=== PATIENT | female | born 1950 | race Caucasian/White ===

== ENCOUNTER 2019-09-10 12:11 | Inpatient (IN) ==
[2019-09-10] MEDS ORDERED: TUSSIONEX PENNKINETIC SUSP PO PRN (12:21)
[2019-09-10] MEDS ORDERED: LEVAQUIN PREMIX IV 500 MG 500 MG/100 ML BAG IV SCH (13:00)
[2019-09-10 13:02] LABS: BASOPHILS % (AUTO) 0.1 % (0.2-1.0); HEMATOCRIT 33.1 % (36.0-47.0); HEMOGLOBIN 11.1 g/dL (12.0-16.0); LYMPHOCYTES # (AUTO) 2.8 X10^3/uL (1.3-2.9); LYMPHOCYTES % (AUTO) 20.1 % (21.0-51.0); MEAN CORPUSCULAR HEMOGLOBIN 30.7 pg (27.0-34.0); MEAN CORPUSCULAR HGB CONC 33.7 g/dL (33.0-35.0); MEAN CORPUSCULAR VOLUME 91.1 fL (80.0-100.0); MONOCYTES # (AUTO) 1.6 x10^3/uL (0.3-0.8); MONOCYTES % (AUTO) 11.7 % (0.0-13.0); NEUTROPHILS # (AUTO) 9.4 x10^3/uL (2.2-4.8); NEUTROPHILS % (AUTO) 68.1 % (42.0-75.0); PLATELET COUNT 394 X10^3/uL (150.0-450.0); RED BLOOD COUNT 3.63 X10^6/uL (3.5-5.4); RED CELL DISTRIBUTION WIDTH 14.3 % (11.6-16.5); WHITE BLOOD COUNT 13.8 X10^3/uL (3.6-10.0)
[2019-09-10 13:22] LABS: ALANINE AMINOTRANSFERASE 29 Units/L (12-78); ALKALINE PHOSPHATASE 136 Units/L (46-116); ASPARTATE AMINO TRANSFERASE 25 Units/L (15-37); BLOOD UREA NITROGEN 35 mg/dL (7-18); CALCIUM 8.4 mg/dL (8.5-10.1); CARBON DIOXIDE 24.1 mmol/L (21-32); CHLORIDE 103 mmol/L (98-107); COR CA(FOR HYPOALB) 9.2 mg/dL (8.5-10.1); CREATININE 1.87 mg/dL (0.55-1.02); SODIUM 136 mmol/L (136-145); TOTAL PROTEIN 8.8 g/dL (6.4-8.2); eGFR NON BLACK RACES 28 (>60)
[2019-09-10 13:59] LABS: BILIRUBIN,URINE NEGATIVE (NEGATIVE); BLOOD/HEMOGLOBIN,URINE 5+ (NEGATIVE); GLUCOSE, URINE NEGATIVE (NEGATIVE); KETONES,URINE NEGATIVE (NEGATIVE); LEUKOCYTE ESTERASE ,URINE 3+ (NEGATIVE); NITRITES,URINE NEGATIVE (NEGATIVE); PROTEIN,URINE 2+ (NEGATIVE); UROBILINOGEN,URINE NORMAL (NORMAL)
[2019-09-10 14:01] VITALS: BMI 39.4
[2019-09-10 14:05] LABS: APPEARANCE,URINE HAZY (CLEAR); BACTERIA,URINE TRACE /HPF (NEGATIVE); COLOR,URINE AMBER (YELLOW); RBC,URINE 20-30 /HPF (0-3); SQUAMOUS EPITHELIAL CELL,UR RARE /HPF (NEGATIVE); YEAST,URINE RARE /HPF (NEGATIVE)
--- NOTE | 2019-09-10 14:07 | RAD ---
HISTORY: Cough, fever, pneumonia Study: Two-view chest Comparison: No priors Findings: Trachea is midline. Heart size is upper normal. There are increased interstitial markings bilaterally which may represent bilateral bronchitis or interstitial pneumonitis. No dense consolidation, CHF pleural fluid or pneumothorax is seen. There is a mild thoracolumbar scoliosis. There is multilevel thoracic spondylosis. IMPRESSION: Bilateral bronchitis versus interstitial pneumonitis. No dense consolidation or CHF is seen. Reported By:
[2019-09-10] MEDS ORDERED: NS 1/2 1000 ML IV 1,000 ML IV ONE (15:22)
[2019-09-10] MEDS: NS 1/2 1000 ML IV 1,000 ML IV SCH (15:30)
[2019-09-10] MEDS: ROBITUSSIN DM PO SCH ×3 (15:52→20:21)
[2019-09-10] MEDS: SOLU-Medrol 40 MG VIAL IVP SCH ×2 (15:52→22:00)
[2019-09-10] MEDS: LEVAQUIN PREMIX IV 750 MG 750 MG/150 ML BAG IV SCH (15:52)
[2019-09-10] MEDS: VSL#3 PO SCH (16:11)
[2019-09-10] MEDS: TAMIFLU PO SCH ×2 (16:11→20:20)
[2019-09-10] MEDS: DUONEB 0.5 MG/3 MG NEB SCH ×2 (16:50→21:30)
[2019-09-10] MEDS ORDERED: ZOFRAN INJ 4 MG VIAL IVP PRN (17:57)
[2019-09-10] MEDS: PULMICORT NEB TX 0.5 MG NEB SCH (21:30)
[2019-09-11] MEDS: NS 1/2 1000 ML IV 1,000 ML IV SCH ×4 (03:53→18:55)
[2019-09-11] MEDS ORDERED: NS 1/2 1000 ML IV 1,000 ML IV ONE ×2 (05:22→18:43)
[2019-09-11 05:35] LABS: BASOPHILS % (AUTO) 0.1 % (0.2-1.0); HEMATOCRIT 29.4 % (36.0-47.0); HEMOGLOBIN 9.8 g/dL (12.0-16.0); MEAN CORPUSCULAR HEMOGLOBIN 30.8 pg (27.0-34.0); MEAN CORPUSCULAR HGB CONC 33.4 g/dL (33.0-35.0); MEAN CORPUSCULAR VOLUME 92.1 fL (80.0-100.0); MONOCYTES # (AUTO) 0.5 x10^3/uL (0.3-0.8); MONOCYTES % (AUTO) 4.8 % (0.0-13.0); NEUTROPHILS # (AUTO) 8.3 x10^3/uL (2.2-4.8); NEUTROPHILS % (AUTO) 85.1 % (42.0-75.0); PLATELET COUNT 293 X10^3/uL (150.0-450.0); RED BLOOD COUNT 3.19 X10^6/uL (3.5-5.4); RED CELL DISTRIBUTION WIDTH 14.3 % (11.6-16.5); WHITE BLOOD COUNT 9.8 X10^3/uL (3.6-10.0)
[2019-09-11] MEDS: SOLU-Medrol 40 MG VIAL IVP SCH ×3 (05:38→21:03)
[2019-09-11 05:50] LABS: ALBUMIN 2.4 g/dL (3.4-5.0); CALCIUM 7.9 mg/dL (8.5-10.1); CARBON DIOXIDE 22.2 mmol/L (21-32); COR CA(FOR HYPOALB) 9.2 mg/dL (8.5-10.1); CREATININE 1.83 mg/dL (0.55-1.02); TOTAL PROTEIN 7.6 g/dL (6.4-8.2)
--- NOTE | 2019-09-11 06:19 | RAD ---
HISTORY: Shortness of breath Study: Chest AP portable Comparison: 09/10/2019 Findings: The heart is within normal limits in size. The garrett are normal. The lungs are free of acute alveolar infiltrates. There is some interstitial infiltrate again identified as is some peribronchial thickening suggestive of pneumonitis/bronchitis. No significant pleural effusions are identified. The bony thorax is unremarkable. IMPRESSION: Bilateral perihilar interstitial lung changes with some peribronchial thickening consistent with pneumonitis/bronchitis, unchanged Reported By:
[2019-09-11] MEDS: ROBITUSSIN DM PO SCH ×4 (08:35→21:03)
[2019-09-11] MEDS: TAMIFLU PO SCH ×2 (08:35→21:03)
[2019-09-11] MEDS: VSL#3 PO SCH (08:35)
[2019-09-11] MEDS: PULMICORT NEB TX 0.5 MG NEB SCH ×2 (09:25→20:50)
[2019-09-11] MEDS: DUONEB 0.5 MG/3 MG NEB SCH ×4 (09:25→20:50)
--- NOTE | 2019-09-11 10:29 | DR.UPDATE ---
H&P Update History and Physical Update: History and Physical reviewed and patient examined. Changes noted: Yes with the following: WAS SEEN IN THE OFFICE TODAY FOR PERSISTENT COUGH AND SHORTNESS OF BREATH. SHE HAS BEEN TAKING BACTRIM DS 1 TABLET TWICE A DAY FOR A URINARY TRACT INFECTION. SHE HAS ALSO BEEN TAKING A MEDROL DOSEPACK FOR 3 DAYS. SHE RECEIVED A ROCEPHIN AND SOLU-MEDROL INJECTION IN THE OFFICE 4 DAYS AGO, BUT DENIES IMPROVEMENT IN SYMPTOMS. ON EXAMINATION, SHE IS NOTED WITH SCATTERED WHEEZING. WE WILL OBTAIN LABS, CHEST XRAY, INFLUENZA SWAB, AND CULTURES. WE WILL START THE PNEUMONIA PROTOCOL WITH IV LEVAQUIN, SOLU- MEDROL, RESPIRATORY TREATMENTS, AND SUPPLEMENTAL OXYGEN. OTHERWISE, WE WILL FOLLOW-UP WITH AM LABS AND CONTINUE TO MONITOR. Prescription drug monitoring program results: PDMP was not reviewed H&P Reviewed: Yes Patient was examined?: Yes
--- NOTE | 2019-09-11 20:24 | PCM.PROG ---
Progress Note - Progress Note for Day of Date of Exam: 09/11/19 - Subjective Subjective: WAS ADMITTED FOR TREATMENT OF PNEUMONIA. TODAY, SHE IS ALERT AND ORIENTED, LYING IN BED ON MORNING ROUNDS. SHE CONTINUES WITH COMPLAINTS OF SHORTNESS OF BREATH AND A PRODUCTIVE COUGH. ON EXAMINATION, HEART IS REGULAR IN RATE AND RHYTHM. BILATERAL LUNGS ARE NOTED WITH SCATTERED WHEEZI NG. ABDOMEN IS ROUND, SOFT, AND NON-TENDER WITH NORMAL BOWEL SOUNDS NOTED IN ALL QUADRANTS. HER VITALS THIS MORNING ARE: 98.4-66-18-98%-143/65. LABS WERE OBTAINED. ABNORMAL LAB VALUES INCLUDE THE FOLLOWING: RBC 3.19, HGB 9.8, HCT 29.4, SODIUM 135, POTASSIUM 5.5, BUN 31, CREATININE 1.83, GLUCOSE 154, CALCIUM 7.9, ALBUMIN 2.4. URINALYSIS WAS OBTAINED ON ADMISSION AND REVEALED: WBC 10-20, RBC 20-30, LEUKOCYTES 3+, BACTERIA TRACE. BLOOD, SPUTUM, AND URINE CULTURE PENDING. A CHEST XRAY WAS OBTAINED THIS MORNING AND REVEALED: BILATERAL PERIHILAR INTERSTITIAL LUNG CHANGES WITH SOME PERIBRONCHIAL THICKENING CONSISTENT WITH PNEUMONITIS/BRONCHITIS, UNCHANGED. SHE IS CURRENTLY RECEIVING LEVAQUIN 750MG IV Q48H, SOLU-MEDROL 40MG IV Q8H, TAMIFLU 75MG PO BID, RESPIRATORY TX, AND 1/2NS AT 75ML/HR. WE WILL CONTINUE WITH CURRENT PLAN OF CARE TODAY AND OBTAIN AN ECHO. OTHERWISE, WE WILL FOLLOW UP WITH AM LABS AND CONTINUE TO MONITOR. - Past Medical Family Social History Past Med/Fam/Surg Hx: No changes since H&P Allergies: Allergies indomethacin [From Indocin] Allergy (Verified 09/10/19 15:06) - Review of Systems ROS: No change since H&P - Vital Signs and I&O's Vital Signs: Temperature 98.6 F Pulse Rate [Left Brachial] 76 Pulse Rate 75 Respiratory Rate 16 Blood Pressure [Right Arm] 169/70 Blood Pressure [Left Arm] 155/59 O2 Sat by Pulse Oximetry 97 Intake and Output: Intake & Output 09/09/19 09/10/19 09/11/19 09/12/19 11:59 11:59 11:59 11:59 Intake Total 735 / 735 690 / 690 Balance 735 / 735 690 / 690 - Physical Exam Oriented: Normal Eyes: Normal Ear: Normal Nose: Normal Throat: Normal Respiratory: Generalized, Wheezes Cardiovascular: Normal : Normal Auscultation: Bowel Sounds: Normal Palpation: Normal Tenderness: Normal Skin: Normal Musculoskeletal: Normal Psychiatric: Normal Mood Description: Calm Affect: Normal Speech Pattern: Clear, Appropriate - Laboratory and Diagnostics Result Diagrams: 09/11/19 05:10 09/11/19 05:10 Labs: 09/10/19 16:44 Sputum - Expectorated Sputum Sputum Culture - Preliminary 09/10/19 16:44 Sputum - Expectorated Sputum - Final 09/10/19 13:34 Urine,Clean Catch Urine Culture - Final Laboratory WBC 9.8 X10^3/uL (3.6-10.0) 09/11/19 05:10 RBC 3.19 X10^6/uL (3.5-5.4) L 09/11/19 05:10 Hgb 9.8 g/dL (12.0-16.0) L 09/11/19 05:10 Hct 29.4 % (36.0-47.0) L 09/11/19 05:10 MCV 92.1 fL (80.0-100.0) 09/11/19 05:10 MCH 30.8 pg (27.0-34.0) 09/11/19 05:10 MCHC 33.4 g/dL (33.0-35.0) 09/11/19 05:10 RDW 14.3 % (11.6-16.5) 09/11/19 05:10 Plt Count 293 X10^3/uL (150.0-450.0) 09/11/19 05:10 MPV 7.0 fL (7.4-11.0) L 09/11/19 05:10 Neut % (Auto) 85.1 % (42.0-75.0) H 09/11/19 05:10 Lymph % (Auto) 10.0 % (21.0-51.0) L 09/11/19 05:10 [place] % (Auto) 4.8 % (0.0-13.0) 09/11/19 05:10 Eos % (Auto) 0.0 % (0.9-2.9) L 09/11/19 05:10 Baso % (Auto) 0.1 % (0.2-1.0) L 09/11/19 05:10 Neut # (Auto) 8.3 x10^3/uL (2.2-4.8) H 09/11/19 05:10 Lymph # (Auto) 1.0 X10^3/uL (1.3-2.9) L 09/11/19 05:10 [place] # (Auto) 0.5 x10^3/uL (0.3-0.8) 09/11/19 05:10 Eos # (Auto) 0.0 x10^3/uL (0.0-0.2) 09/11/19 05:10 Baso # (Auto) 0.0 X10^3/uL (0.0-0.1) 09/11/19 05:10 Absolute Nucleated RBC 0.0 /100WBC 09/11/19 05:10 Sodium 135 mmol/L (136-145) L 09/11/19 05:10 Corrected Sodium 136 mmol/L (136-145) 09/11/19 05:10 Potassium 5.5 mmol/L (3.5-5.1) H 09/11/19 05:10 Chloride 103 mmol/L (98-107) 09/11/19 05:10 Carbon Dioxide 22.2 mmol/L (21-32) 09/11/19 05:10 BUN 31 mg/dL (7-18) H 09/11/19 05:10 Creatinine 1.83 mg/dL (0.55-1.02) H 09/11/19 05:10 Est GFR (MDRD) Af Amer 35 (>60) L 09/11/19 05:10 Est GFR (MDRD) Non-Af 29 (>60) L 09/11/19 05:10 Glucose 154 mg/dL (65-99) H 09/11/19 05:10 Calcium 7.9 mg/dL (8.5-10.1) L 09/11/19 05:10 Corrected Calcium 9.2 mg/dL (8.5-10.1) 09/11/19 05:10 Total Bilirubin 0.30 mg/dL (0.2-1.0) 09/11/19 05:10 AST 19 Units/L (15-37) 09/11/19 05:10 ALT 29 Units/L (12-78) 09/11/19 05:10 Alkaline Phosphatase 115 Units/L (46-116) 09/11/19 05:10 Total Protein 7.6 g/dL (6.4-8.2) 09/11/19 05:10 Albumin 2.4 g/dL (3.4-5.0) L 09/11/19 05:10 Globulin 5.2 g/dL (2.5-4.5) H 09/11/19 05:10 Albumin/Globulin Ratio 0.5 Ratio (1.1-2.1) L 09/11/19 05:10 Specimen Type Clean catch urine 09/10/19 13:34 Urine Color Meghna (YELLOW) 09/10/19 13:34 Urine Appearance Hazy (CLEAR) 09/10/19 13:34 Urine pH 6.0 (5.0 - 8.0) 09/10/19 13:34 Ur Specific [place] 1.015 (1.000-1.030) 09/10/19 13:34 Urine Protein 2+ (NEGATIVE) 09/10/19 13:34 Urine Glucose (UA) Negative (NEGATIVE) 09/10/19 13:34 Urine Ketones Negative (NEGATIVE) 09/10/19 13:34 Urine Occult Blood 5+ (NEGATIVE) 09/10/19 13:34 Urine Nitrite Negative (NEGATIVE) 09/10/19 13:34 Urine Bilirubin Negative (NEGATIVE) 09/10/19 13:34 Urine Urobilinogen Normal (NORMAL) 09/10/19 13:34 Ur Leukocyte Esterase 3+ (NEGATIVE) 09/10/19 13:34 Urine RBC 20-30 /HPF (0-3) A 09/10/19 13:34 Urine WBC 10-20 /HPF (0-5) A 09/10/19 13:34 Ur Squamous Epith Cells Rare /HPF (NEGATIVE) 09/10/19 13:34 Urine Bacteria Trace /HPF (NEGATIVE) 09/10/19 13:34 Urine Yeast Rare /HPF (NEGATIVE) 09/10/19 13:34 Ur Culture Indicated? Yes/culture set up 09/10/19 13:34 Influenza Type A (PCR) Negative (NEGATIVE) 09/10/19 14:55 Influenza Type B (PCR) Negative (NEGATIVE) 09/10/19 14:55 - Plan (1) Pneumonia Status: Acute Qualifiers: Pneumonia type: due to unspecified organism Laterality: bilateral Lung location: unspecified part of lung Qualified Code(s): J18.9 - Pneumonia, unspecified organism Plan: IV FLUIDS, LEVAQUIN IV DAILY, RESPIRATORY TX, SOLU-MEDROL TID, SUPPLEMENTAL OXYGEN, CONTINUE TO MONITOR.
[2019-09-12 05:28] LABS: BASOPHILS % (AUTO) 0.1 % (0.2-1.0); HEMATOCRIT 29.5 % (36.0-47.0); HEMOGLOBIN 9.9 g/dL (12.0-16.0); LYMPHOCYTES # (AUTO) 1.1 X10^3/uL (1.3-2.9); LYMPHOCYTES % (AUTO) 7.7 % (21.0-51.0); MEAN CORPUSCULAR HGB CONC 33.5 g/dL (33.0-35.0); MEAN CORPUSCULAR VOLUME 92.4 fL (80.0-100.0); MEAN PLATELET VOLUME 7.2 fL (7.4-11.0); MONOCYTES # (AUTO) 0.7 x10^3/uL (0.3-0.8); MONOCYTES % (AUTO) 5.1 % (0.0-13.0); NEUTROPHILS # (AUTO) 12.1 x10^3/uL (2.2-4.8); NEUTROPHILS % (AUTO) 87.1 % (42.0-75.0); PLATELET COUNT 312 X10^3/uL (150.0-450.0); RED BLOOD COUNT 3.19 X10^6/uL (3.5-5.4); RED CELL DISTRIBUTION WIDTH 14.1 % (11.6-16.5); WHITE BLOOD COUNT 13.9 X10^3/uL (3.6-10.0)
[2019-09-12 05:40] LABS: ALBUMIN 2.3 g/dL (3.4-5.0); CARBON DIOXIDE 23.3 mmol/L (21-32); COR CA(FOR HYPOALB) 9.4 mg/dL (8.5-10.1); CREATININE 1.83 mg/dL (0.55-1.02); TOTAL PROTEIN 7.3 g/dL (6.4-8.2)
[2019-09-12] MEDS ORDERED: NS 1/2 1000 ML IV 1,000 ML IV ONE ×2 (05:54→19:47)
[2019-09-12] MEDS: SOLU-Medrol 40 MG VIAL IVP SCH ×3 (06:13→21:37)
[2019-09-12] MEDS: NS 1/2 1000 ML IV 1,000 ML IV SCH ×3 (06:13→21:37)
--- NOTE | 2019-09-12 06:55 | RAD ---
HISTORY: 69-year-old female with cough and fever. Study: Frontal view of the chest. Comparison: Chest radiograph 09/11/2019 Findings: The trachea is midline. Patient is rotated to the left. The cardiac silhouette is stably enlarged with unchanged prominence interstitium and perihilar lung markings. The lungs are clear without focal consolidation, effusion or pneumothorax. Soft tissues are unremarkable. Osseous structures are unremarkable. IMPRESSION: 1. No interval change. Reported By:
[2019-09-12] MEDS: VSL#3 PO SCH (08:53)
[2019-09-12] MEDS: ROBITUSSIN DM PO SCH ×4 (08:53→20:28)
[2019-09-12] MEDS: PULMICORT NEB TX 0.5 MG NEB SCH ×2 (08:59→20:51)
[2019-09-12] MEDS: DUONEB 0.5 MG/3 MG NEB SCH ×4 (08:59→20:51)
[2019-09-12] MEDS: LEVAQUIN PREMIX IV 750 MG 750 MG/150 ML BAG IV SCH (15:41)
--- NOTE | 2019-09-12 19:04 | PCM.PROG ---
Progress Note - Progress Note for Day of Date of Exam: 09/12/19 - Subjective Subjective: WAS ADMITTED FOR TREATMENT OF PNEUMONIA. TODAY, SHE IS ALERT AND ORIENTED, LYING IN BED ON MORNING ROUNDS. SHE CONTINUES WITH COMPLAINTS OF SHORTNESS OF BREATH AND A PRODUCTIVE COUGH. ON EXAMINATION, HEART IS REGULAR IN RATE AND RHYTHM. BILATERAL LUNGS ARE NOTED WITH SCATTERED WHEEZI NG. ABDOMEN IS ROUND, SOFT, AND NON-TENDER WITH NORMAL BOWEL SOUNDS NOTED IN ALL QUADRANTS. HER VITALS THIS MORNING ARE: 97.9-72-20-98%-152/66. LABS WERE OBTAINED. ABNORMAL LAB VALUES INCLUDE THE FOLLOWING: WBC 13.9, RBC 3.19, HGB 9.9, HCT 29.5, SODIUM 134, POTASSIUM 6.0, BUN 41, CREATININE 1.83, GLUCOSE 159, CALCIUM 8.0, ALBUMIN 2.3, GLOBULIN 5.0. BLOOD, SPUTUM, AND URINE CULTURE PENDING. A CHEST XRAY WAS OBTAINED THIS MORNING AND REVEALED: The trachea is midline. Patient is rotated to the left. The cardiac silhouette is stably enlarged with unchanged prominence interstitium and perihilar lung markings. The lungs are clear without focal consolidation, effusion or pneumothorax. Soft tissues are unremarkable. Osseous structures are unremarkable. AN ECHO WAS OBTAINED AND REVEALED AN EJECTION FRACTION OF 71%. SHE IS CURRENTLY RECEIVING LEVAQUIN 750MG IV Q48H, SOLU-MEDROL 40MG IV Q8H, TAMIFLU 75MG PO BID, RESPIRATORY TX, AND 1/2NS AT 75ML/HR. WE WILL CONTINUE WITH CURRENT PLAN OF CARE TODAY AND INCREASE HER IV FLUIDS TO 125 ML/HR. OTHERWISE, WE WILL FOLLOW UP WITH AM LABS AND CONTINUE TO MONITOR. - Past Medical Family Social History Past Med/Fam/Surg Hx: No changes since H&P Allergies: Allergies indomethacin [From Indocin] Allergy (Verified 09/10/19 15:06) - Review of Systems ROS: No change since H&P - Vital Signs and I&O's Vital Signs: Temperature 98.7 F Pulse Rate [Left Brachial] 75 Pulse Rate 89 Respiratory Rate 20 Blood Pressure [Right Arm] 174/69 Blood Pressure [Left Arm] 155/59 O2 Sat by Pulse Oximetry 96 Intake and Output: Intake & Output 09/10/19 09/11/19 09/12/19 09/13/19 11:59 11:59 11:59 11:59 Intake Total 735 / 735 1580 / 1580 1410 / 1410 Output Total Balance 735 / 735 1580 / 1580 1409 / 1409 - Physical Exam Oriented: Normal Eyes: Normal Ear: Normal Nose: Normal Throat: Normal Respiratory: Generalized, Wheezes Cardiovascular: Normal : Normal Auscultation: Bowel Sounds: Normal Palpation: Normal Tenderness: Normal Skin: Normal Musculoskeletal: Normal Psychiatric: Normal Mood Description: Calm Affect: Normal Speech Pattern: Clear, Appropriate - Laboratory and Diagnostics Result Diagrams: 09/12/19 04:56 09/12/19 04:56 Labs: 09/10/19 12:44 Blood Blood Culture - Preliminary 09/10/19 12:40 Blood Blood Culture - Preliminary 09/10/19 16:44 Sputum - Expectorated Sputum Sputum Culture - Final 09/10/19 16:44 Sputum - Expectorated Sputum - Final 09/10/19 13:34 Urine,Clean Catch Urine Culture - Final Laboratory WBC 13.9 X10^3/uL (3.6-10.0) H 09/12/19 04:56 RBC 3.19 X10^6/uL (3.5-5.4) L 09/12/19 04:56 Hgb 9.9 g/dL (12.0-16.0) L 09/12/19 04:56 Hct 29.5 % (36.0-47.0) L 09/12/19 04:56 MCV 92.4 fL (80.0-100.0) 09/12/19 04:56 MCH 31.0 pg (27.0-34.0) 09/12/19 04:56 MCHC 33.5 g/dL (33.0-35.0) 09/12/19 04:56 RDW 14.1 % (11.6-16.5) 09/12/19 04:56 Plt Count 312 X10^3/uL (150.0-450.0) 09/12/19 04:56 MPV 7.2 fL (7.4-11.0) L 09/12/19 04:56 Neut % (Auto) 87.1 % (42.0-75.0) H 09/12/19 04:56 Lymph % (Auto) 7.7 % (21.0-51.0) L 09/12/19 04:56 [place] % (Auto) 5.1 % (0.0-13.0) 09/12/19 04:56 Eos % (Auto) 0.0 % (0.9-2.9) L 09/12/19 04:56 Baso % (Auto) 0.1 % (0.2-1.0) L 09/12/19 04:56 Neut # (Auto) 12.1 x10^3/uL (2.2-4.8) H 09/12/19 04:56 Lymph # (Auto) 1.1 X10^3/uL (1.3-2.9) L 09/12/19 04:56 [place] # (Auto) 0.7 x10^3/uL (0.3-0.8) 09/12/19 04:56 Eos # (Auto) 0.0 x10^3/uL (0.0-0.2) 09/12/19 04:56 Baso # (Auto) 0.0 X10^3/uL (0.0-0.1) 09/12/19 04:56 Absolute Nucleated RBC 0.0 /100WBC 09/12/19 04:56 Sodium 134 mmol/L (136-145) L 09/12/19 04:56 Corrected Sodium 135 mmol/L (136-145) L 09/12/19 04:56 Potassium 6.0 mmol/L (3.5-5.1) H* 09/12/19 04:56 Chloride 104 mmol/L (98-107) 09/12/19 04:56 Carbon Dioxide 23.3 mmol/L (21-32) 09/12/19 04:56 BUN 41 mg/dL (7-18) H 09/12/19 04:56 Creatinine 1.83 mg/dL (0.55-1.02) H 09/12/19 04:56 Est GFR (MDRD) Af Amer 35 (>60) L 09/12/19 04:56 Est GFR (MDRD) Non-Af 29 (>60) L 09/12/19 04:56 Glucose 159 mg/dL (65-99) H 09/12/19 04:56 Calcium 8.0 mg/dL (8.5-10.1) L 09/12/19 04:56 Corrected Calcium 9.4 mg/dL (8.5-10.1) 09/12/19 04:56 Total Bilirubin 0.20 mg/dL (0.2-1.0) 09/12/19 04:56 AST 16 Units/L (15-37) 09/12/19 04:56 ALT 26 Units/L (12-78) 09/12/19 04:56 Alkaline Phosphatase 112 Units/L (46-116) 09/12/19 04:56 Total Protein 7.3 g/dL (6.4-8.2) 09/12/19 04:56 Albumin 2.3 g/dL (3.4-5.0) L 09/12/19 04:56 Globulin 5.0 g/dL (2.5-4.5) H 09/12/19 04:56 Albumin/Globulin Ratio 0.5 Ratio (1.1-2.1) L 09/12/19 04:56 Specimen Type Clean catch urine 09/10/19 13:34 Urine Color Meghna (YELLOW) 09/10/19 13:34 Urine Appearance Hazy (CLEAR) 09/10/19 13:34 Urine pH 6.0 (5.0 - 8.0) 09/10/19 13:34 Ur Specific [place] 1.015 (1.000-1.030) 09/10/19 13:34 Urine Protein 2+ (NEGATIVE) 09/10/19 13:34 Urine Glucose (UA) Negative (NEGATIVE) 09/10/19 13:34 Urine Ketones Negative (NEGATIVE) 09/10/19 13:34 Urine Occult Blood 5+ (NEGATIVE) 09/10/19 13:34 Urine Nitrite Negative (NEGATIVE) 09/10/19 13:34 Urine Bilirubin Negative (NEGATIVE) 09/10/19 13:34 Urine Urobilinogen Normal (NORMAL) 09/10/19 13:34 Ur Leukocyte Esterase 3+ (NEGATIVE) 09/10/19 13:34 Urine RBC 20-30 /HPF (0-3) A 09/10/19 13:34 Urine WBC 10-20 /HPF (0-5) A 09/10/19 13:34 Ur Squamous Epith Cells Rare /HPF (NEGATIVE) 09/10/19 13:34 Urine Bacteria Trace /HPF (NEGATIVE) 09/10/19 13:34 Urine Yeast Rare /HPF (NEGATIVE) 09/10/19 13:34 Ur Culture Indicated? Yes/culture set up 09/10/19 13:34 Influenza Type A (PCR) Negative (NEGATIVE) 09/10/19 14:55 Influenza Type B (PCR) Negative (NEGATIVE) 09/10/19 14:55 - Plan (1) Pneumonia Status: Acute Qualifiers: Pneumonia type: due to unspecified organism Laterality: bilateral Lung location: unspecified part of lung Qualified Code(s): J18.9 - Pneumonia, unspecified organism Plan: IV FLUIDS, LEVAQUIN IV DAILY, RESPIRATORY TX, SOLU-MEDROL TID, SUPPLEMENTAL OXYGEN, CONTINUE TO MONITOR. (2) Hyperkalemia Status: Acute Plan: NORMAL SALINE AT 125ML/HR, CONTINUE TO MONITOR
[2019-09-13] MEDS ORDERED: NS 1/2 1000 ML IV 1,000 ML IV ONE (04:49)
[2019-09-13] MEDS: NS 1/2 1000 ML IV 1,000 ML IV SCH ×2 (04:56→14:01)
[2019-09-13] MEDS: SOLU-Medrol 40 MG VIAL IVP SCH (05:34)
[2019-09-13 06:20] LABS: BASOPHILS % (AUTO) 0 % (0.2-1.0); HEMOGLOBIN 9.9 g/dL (12.0-16.0); LYMPHOCYTES # (AUTO) 0.9 X10^3/uL (1.3-2.9); MEAN CORPUSCULAR HEMOGLOBIN 30.5 pg (27.0-34.0); MEAN CORPUSCULAR VOLUME 92.5 fL (80.0-100.0); MEAN PLATELET VOLUME 7.1 fL (7.4-11.0); MONOCYTES # (AUTO) 0.7 x10^3/uL (0.3-0.8); NEUTROPHILS # (AUTO) 11.9 x10^3/uL (2.2-4.8); PLATELET COUNT 328 X10^3/uL (150.0-450.0); RED BLOOD COUNT 3.24 X10^6/uL (3.5-5.4); RED CELL DISTRIBUTION WIDTH 14.4 % (11.6-16.5); WHITE BLOOD COUNT 13.5 X10^3/uL (3.6-10.0)
[2019-09-13 06:43] LABS: ALBUMIN 2.4 g/dL (3.4-5.0); CALCIUM 7.9 mg/dL (8.5-10.1); CARBON DIOXIDE 22.3 mmol/L (21-32); COR CA(FOR HYPOALB) 9.2 mg/dL (8.5-10.1); CREATININE 1.58 mg/dL (0.55-1.02); TOTAL PROTEIN 7.1 g/dL (6.4-8.2)
--- NOTE | 2019-09-13 06:48 | RAD ---
HISTORY: 69-year-old female with shortness of breath, cough fever. Study: Frontal view of the chest. Comparison: Chest radiograph 09/12/2019 Findings: The trachea is midline. The cardiac silhouette is stable with prominent interstitium and perihilar lung markings. Improved inspiratory effort with patchy bibasilar airspace opacities. No pneumothorax or large effusion. Soft tissues are unremarkable. Osseous structures are unremarkable. IMPRESSION: 1. Patchy bibasilar airspace opacities, atelectasis versus infection/edema. Correlate clinically with serology. Reported By:
[2019-09-13] MEDS: DUONEB 0.5 MG/3 MG NEB SCH ×2 (08:49→12:05)
[2019-09-13] MEDS: PULMICORT NEB TX 0.5 MG NEB SCH (08:49)
[2019-09-13] MEDS: ROBITUSSIN DM PO SCH ×2 (09:20→14:01)
[2019-09-13] MEDS: VSL#3 PO SCH (09:20)
[2019-09-13 13:09] VITALS: BP 162/77
== END 2019-09-13 13:30 | disposition home or self-care (01) | DRG 195 ==
LOC: MED/SURG 12:20
PROVIDERS: ADMIT Internal Medicine; ATTEND Internal Medicine
CPT/HCPCS: 36415; 71010; 71020; 71045; 71046; 80053; 81001; 85025; 87040; 87070; 87086; 87205; 87502; 93306; 94640; 94760; A4222; G9035; J1956; J2405; J2920; J7620; J7626